=== PATIENT | female | born 1990 | race Caucasian/White ===

== ENCOUNTER 2017-07-11 01:03 | Emergency (ER) | payer SELFPAY ==
[2017-07-11 01:45] LABS: Hemoglobin 13.5 gm/dL (12.5-16.0); Mean Cell Volume 85.7 fl (78-100); Mean Corpuscular Hemoglobin 29.7 pg (27-31); Mean Corpuscular Hgb Conc 34.6 g/dl (32-36); Mean Platelet Volume 8.4 fl (6.0-9.5); Neutrophil # 12.8 K/mm3 (1.3-6.0); Neutrophil % 80.4 % (42-75.0); Platelet Count 396 K/mm3 (150-450); Red Blood Count 4.55 M/mm3 (4.2-5.4); Red Cell Distribution Width 11.9 % (11.5-14.0); White Blood Count 15.9 K/mm3 (4.0-10.5)
[2017-07-11 01:54] LABS: Urine Bilirubin Negative (NEGATIVE); Urine Blood Negative /ul (NEGATIVE); Urine Ketone Negative (NEGATIVE); Urine Nitrite Negative (NEGATIVE); Urine Protein Negative (NEGATIVE); Urine Specific Gravity <=1.005 SP.GR. (1.005-1.010); Urine Urobilinogen Normal (NORMAL)
[2017-07-11 01:57] LABS: Albumin * 3.8 gm/dl (3.4-5.0); Anion Gap 13.7 mmol/L (6.8-13.8); BUN/Creatinine Ratio 11.6 (9.0-21.6); Bilirubin, Total 0.3 mg/dL (0.0-1.1); Ca. Corrected For Albumin 8.9 mg/dL (8.4-10.2); Calcium * 9.1 mg/dL (7.9-10.9); Potassium 3.7 mmol/L (3.4-4.6); Total Protein 7.2 gm/dL (6.2-8.2)
[2017-07-11 02:03] LABS: Urine Appearance Clear; Urine Bacteria None Seen; Urine Color Yellow; Urine RBC None Seen /hpf (0-5); Urine WBC None Seen /hpf (0-5)
[2017-07-11] MEDS ORDERED: DIATRIZOATE MEGLUMINE, SODIUM 30 ML BTL PO ONE (02:31)
[2017-07-11] MEDS ORDERED: DIATRIZOATE MEGLUMINE, SODIUM 30 ML BTL ONE (02:41)
[2017-07-11] MEDS ORDERED: ONDANSETRON HCL/PF 2 MG/ML VIAL IV ONE (02:57)
[2017-07-11] MEDS ORDERED: ONDANSETRON HCL/PF 2 MG/ML VIAL ONE (02:57)
--- NOTE | 2017-07-11 03:36 | ERNOTE ---
Abdominal HPI - Narrative Date of Service: 07/11/17 - General Chief Complaint: Abdominal Pain Time Seen by Provider: 07/11/17 01:29 Source: patient, family Exam Limitations: no limitations - Immun/Allergies/Home Medications Immunizatons: IMMUNIZATION HX Immunizations Up to Date Yes History of Influenza Vaccine No Allergies/Adverse Reactions: Allergies No Known Allergies Allergy (Unverified 07/11/17 01:14) Home Medications: HOME MEDICATIONS Magnesium Citrate 295 ml PO ONCE #1 solution 07/11/17 [Last Taken Unknown] Meclizine HCl [Antivert] 25 mg PO TID PRN 07/11/17 [Last Taken Unknown] hydrOXYzine HCL [Hydroxyzine HCl] 10 mg PO QID PRN 07/11/17 [Last Taken Unknown] - History of Present Illness Narrative: patient had onset of abdominal pain last evening, denies nausea or vomiting Timing: constant, getting worse Quality: moderate, fullness, sharpness, throbbing Activities at Onset: none Modifying Factors - (Improves): Present: other - nothing Modifying Factors - (Worsens): Present: other - nothing Associated Symptoms: Present: denies symptoms Prior Abdominal Problems: Present: none Review of Systems - Narrative Narrative: unremarkable - Review of Systems Constitutional: Present: See HPI EYE: Present: no symptoms reported ENT: Present: no symptoms reported Respiratory: Present: no symptoms reported Cardiology: Present: no symptoms reported Gastrointestinal/Abdominal: Present: See HPI, nausea, abdominal pain, eating less, drinking less Genitourinary: Present: no symptoms reported Musculoskeletal: Present: no symptoms reported Skin: Present: no symptoms reported Neurological: Present: no symptoms reported Endocrine: Present: no symptoms reported Hematologic/Lymphatic: Present: no symptoms reported Psych: Present: no symptoms reported All Other Systems: All systems neg except as marked - Narrative Narrative: unremarkable - Patient's Past Medical History Patient History - Medical: Anxiety, Kidney stone, Other Patient History - Cardiac/Respiratory: No pertinent hx Patient History - Cancer: No Hx of Cancer Patient History - Surgical Procedures: T & A, Urology Patient History - Other: None LMP (females 10-50): last week - Family History Family History:: no untoward family reactions to anesthesia, no familial bleeding tendencies, no family history of clotting disorders, no family history of premature - Social History Living Situations: spouse Abuse History: No History of abuse Psych History: Hx of Anxiety Does anyone smoke in the home?: Yes Smoking Status: Current every day smoker Have you smoked in the past 12 months: Yes Do you dip or chew tobacco: No Patient requests Smoking Cessation Consult: No Initiate information on Smoking Cessation: No Alcohol Use: none Drug Use: none - Immunizations Immunizations Up to Date: Yes History of Influenza Vaccine: No Physical Exam - Physical Exam General Appearance: Present: mild distress, anxious Head Exam: Present: normal inspection, no evidence of injury Eye Exam: Normal inspection: bilateral, PERRL: bilateral, EOMI: bilateral Ears, Nose, Throat: Present: normal ENT inspection Neck: Present: normal inspection, nontender Respiratory: Present: no respiratory distress, normal breath sounds, no accessory muscle use, chest nontender, lungs clear Cardiovascular/Chest: Present: regular rate, rhythm, no murmur, normal peripheral pulses Gastrointestinal/Abdominal: Present: tenderness, distended, guarding, McBurney sign Back Exam: Present: normal inspection, normal range of motion, no CVA tenderness , no vertebral tenderness Extremity Exam: Present: normal inspection, non-tender, normal range of motion, no edema Neurological Exam: Present: alert, oriented, normal mood/affect, no motor/ sensory deficits Skin Exam: Present: normal color, warm/dry Lymphatic Exam: Present: no adenopathy ED Progress - Date and Time Seen: Date and Time: 07/11/17 05:11 condition unchanged, discussed results of labs and ct, to be discharged to return for reevaluation if symptoms worsen - Results and Orders Patient's Lab Results:: I have reviewed the patient's lab results. - Vital Signs Patient's Vital Signs:: I have reviewed the patient's vital signs. Vital Signs: Vital Signs 07/11/17 07/11/17 07/11/17 01:07 02:02 02:39 Temperature 36.1 C L Pulse Rate 140 H 132 H 119 H Respiratory 16 16 16 Rate Blood Pressure 131/93 129/74 130/67 O2 Sat by Pulse 100 100 100 Oximetry 07/11/17 07/11/17 03:02 03:31 Temperature 36.2 C L Pulse Rate 124 H 110 H Respiratory 16 16 Rate Blood Pressure 141/71 135/69 O2 Sat by Pulse 100 100 Oximetry - X-Ray X-Ray #1 X-Ray: abdomen - non-specific bowel gas pattern Interpretation: Interp. by me - CT/Ultrasound CT/Ultrasound Narrative: cy reveals retained stool no appendicitis at present - Progress/Reassessment Chief Complaint: Abdominal Pain Plan - Plan Plan: to be discharged Departure Clinical Impression: Constipation, Abdominal pain - Departure Disposition: Home self-care Condition: Fair Instructions: Constipation, Adult, [id number] Prescriptions: Magnesium Citrate 295 ml PO ONCE #1 solution
[2017-07-11] MEDS ORDERED: MAGNESIUM CITRATE 300 ML BTL PO ONE (05:19)
[2017-07-11] MEDS ORDERED: MAGNESIUM CITRATE 300 ML BTL ONE (05:22)
[2017-07-11 05:34] VITALS: BP 128/68
== END 2017-07-11 05:32 | disposition home or self-care (01) ==
LOC: ER 01:03
DX: F17.200 Nicotine dependence, unspecified, uncomplicated; K59.00 Constipation, unspecified
CPT/HCPCS: 36415; 74019; 74177; 80053; 81001; 82150; 83690; 84703; 85025; 96374; 99285; J2405